=== PATIENT | male | born 1965 | race Caucasian/White ===

== ENCOUNTER 2022-12-19 10:02 | Outpatient (CLI) | payer BC, SELFPAY ==
[2022-12-19 19:34] LABS: Alanine Aminotransferase 75 U/L (6-50); Albumin Level 4.9 g/dL (3.5-5.1); Alkaline Phosphatase 95 U/L (38-126); Aspartate Amino Transferase 66 U/L (17-59); Bilirubin,Total 0.6 mg/dL (0.2-1.3)
[2022-12-19 21:33] LABS: Hepatitis C Virus Antibody Negative (Negative)
== END 2022-12-19 10:03 | disposition home or self-care (01) ==
LOC: ANHGOSHLAB 10:04
PROVIDERS: PCP Internal Medicine; Visit Provider Internal Medicine
DX: R74.8 Abnormal levels of other serum enzymes (principal)
CPT/HCPCS: 36415; 80076; 82728; 86803